=== PATIENT | male | born 1955 | race Caucasian/White ===

== ENCOUNTER 2016-07-03 19:32 | Emergency (ER) | payer BC, OTHER ==
[~2016-07-03] VITALS: Ht 175.3 cm; Wt 100.0 kg
[~2016-07-03 19:32] MED LIST: ALPR.25 PO; B-COTAB35; DIOV40TA PO; EFFE150C PO; FISH500C; LITH450T PO; LIVA1TAB PO; MIRA0.5T PO; MULT1TAB84 PO; REST30CA PO; ZOFR4TAB PO
[2016-07-03 20:10] VITALS: BP 163/93; PULSE 92; RESP 20; TEMP 97.9; O2SAT 98
[2016-07-03 20:45] LABS: AUTOMATED NEUTROPHIL # 7.6 TH/MM3 (1.8-7.7); BASOPHIL % 0.4 % (0.0-2.0); EOSINOPHIL # 0.1 TH/MM3 (0-0.4); EOSINOPHIL % 1.1 % (0.0-4.0); HEMATOCRIT 41.5 % (39.0-51.0); HEMO FLAGS DIFF FINAL; LYMPH % 15.3 % (9.0-44.0); LYMPHOCYTE # 1.6 TH/MM3 (1.0-4.8); MEAN CELL VOLUME 83.1 FL (80.0-100.0); MEAN CORPUSCULAR HEMOGLOBIN 28.8 PG (27.0-34.0); MEAN CORPUSCULAR HGB CONC 34.7 % (32.0-36.0); MONO % 8.9 % (0.0-8.0); NEUT % 74.3 % (16.0-70.0); PLATELET COUNT 281 TH/MM3 (150-450); RED BLOOD COUNT 4.99 MIL/MM3 (4.50-5.90); RED CELL DISTRIBUTION WIDTH 13.6 % (11.6-17.2); WHITE BLOOD COUNT 10.2 TH/MM3 (4.0-11.0)
[2016-07-03 21:05] LABS: ANION GAP 7 MEQ/L (5-15)
[2016-07-03 21:08] LABS: ALKALINE PHOSPHATASE 70 U/L (45-117); ALT (GPT) 35 U/L (12-78); AST (GOT) 16 U/L (15-37); BICARBONATE 25.1 MEQ/L (21.0-32.0); BLOOD UREA NITROGEN 14 MG/DL (7-18); CHLORIDE 107 MEQ/L (98-107); GLOMERULAR FILTRATION RATE 70 ML/MIN (>89); POTASSIUM 3.9 MEQ/L (3.5-5.1); SODIUM (NA) 139 MEQ/L (136-145); TOTAL BILIRUBIN ADULT 0.4 MG/DL (0.2-1.0)
[2016-07-03 22:01] VITALS: BP 147/79; PULSE 92; RESP 19; O2SAT 97
[2016-07-04 00:05] LABS: AMPHETAMINE, URINE NEG (NEG); BARBITURATES, URINE NEG (NEG); COCAINE, URINE NEG (NEG)
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
[2016-07-04 02:00] VITALS: BP 156/86; PULSE 83; RESP 18; O2SAT 97
[2016-07-04 06:05] VITALS: BP 141/75; PULSE 71; RESP 18; O2SAT 99
[2016-07-04 10:17] VITALS: BP 138/71; PULSE 90; RESP 20; O2SAT 96
[2016-10-10] MEDS ORDERED: LITH450T PO (15:57)
[2016-10-12] MEDS ORDERED: LITH1TAB3 PO ×2 (12:49→12:54)
[2016-10-12] MEDS ORDERED: ADDE20 PO (12:49)
[2016-11-08] MEDS ORDERED: LITH1TAB3 PO (15:56)
[2016-11-08] MEDS ORDERED: ALPR1TAB3 PO (15:56)
[2016-11-08] MEDS ORDERED: ADDE20 PO (15:56)
[2016-11-09] MEDS ORDERED: DIPH2.5T60 (09:28)
[2016-11-09] MEDS ORDERED: VALS160T4 PO (09:28)
[2016-11-09] MEDS ORDERED: LIVA4TAB PO (09:30)
[2016-11-09] MEDS ORDERED: MULT1TAB (09:33)
[2016-11-09] MEDS ORDERED: VITACAP7 PO (09:37)
== END 2016-07-04 14:16 ==
LOC: NEPJ 19:32
DX: F31.9 Bipolar disorder, unspecified (principal)
CPT/HCPCS: 80053; 80178; 80307; 80320; 85025; 99285